=== PATIENT | female | born 1985 | race African-American/Black ===

== ENCOUNTER 2025-05-03 19:52 | Emergency (ER) | payer OTHER, SELFPAY ==
--- OUTSIDE RECORDS SUMMARY | 2025-04-19 09:20 | XMS_ITS | Encounter Summary ---
Author Organization [facility] Address [address] [place] [id number] Care Team Providers Care Canvassing Manager Name Role Phone Andrea Garrido MD Primary Care Pro vider Reason for Referral * Medication Prior Authorization - AuthorizedSpecialtyDiagnoses / Procedures Referred By ContactReferred To Contact Diagnoses Type 2 diabetes mellitus with hyperglycemia, with long-term current use of insulin (HCC) [facility] [address] [place] [address] Phone: tel: fax: Referral IDStatusReasonStart DateExpiration DateVisits RequestedVisits [id number] Reason for Visit * ReasonCommentsFollow-upDiabetesHypertensionHyperlipidemiaMedication Refill Encounter Details DateTypeDepartmentCare Team (Latest Contact Info)Nrtprdhiufj69/09/2025 9:20 AM EDTOffice Visit [facility] - [facility] [address] [facility] [address] [place] [address] Andrea Garrido MD [facility] [address] [place] [address] Type 2 diabetes mellitus with hyperglycemia, with long-term current use of insulin (HCC) (Primary Dx); Hypertension associated with diabetes (HCC); Hyperlipidemia associated with type 2 diabetes mellitus (HCC); Vitamin D deficiency; Class 3 severe obesity due to excess calories with serious comorbidity and body mass index (BMI) of50.0 to 59.9 in adult (HCC) Social History Tobacco UseTypesPacks/DayYears UsedDateSmoking Tobacco: Some DaysCigarettes0.5 15.4Started: 2008; Last attempted to quit: 4Passive Smoke Exposure: PastSmokeless Tobacco: Never Tobacco Cessation:Ready to Q uit: Yes Comments:Im gradually slowing down in my smoking. Eventually I will quit. Alcohol UseStandard Drinks/WeekCommentsNot Currently4 (1 standard drink = 0.6 oz pure alcohol)PHQ-2AnswerDate RecordedPHQ-2 Sdldn060Hunger Vital Sign AnswerDate RecordedWithin the past 12 months, you worried that your food would run out before you got the money to buymore.Sometimes true01/23/2025Within the past 12 months, the food you bought just didn't last and you didn't have money to get more.Sometimes true01/23/2025HC UtilitiesAnswerDate RecordedIn the past 12 months has the electric, gas, oil, or water [employer] threatened to shut off services in your home?Yes01/23/2025 - Inadequate HousingAnswerDate Recorded Current Living SituationI have a steady place to live01/23/2025Think about the place you live. Do you have problems with any of the following?None of the above 01/23/2025 - TransportationAnswerDate RecordedIn the past 12 months, has lack of reliable transportation kept you from medical appointments, meetings, work or from getting things needed for daily living?Yes01/23/2025HC - Personal Safety AnswerDate RecordedHow often does anyone, including family and friends, physically hurt you?Never04/19/2025How often does anyone, including family and friends, insult or talk down to you?Never04/19/2025How often does anyone, including family and friends, threaten you with harm?Never04/19/2025How often does anyone, including family and friends, scream or curse at you?Never 04/19/2025HC - Financial StrainAnswerDate RecordedHow hard is it for you to pay for the very basics like food, housing, medical care, and heating? Would you say it is:Not hard at all01/23/2025HC - Social ConnectionsAnswerDate RecordedIf for any reason you need help with day-to-day activities such as bathing, preparing meals, shopping, managing finances, etc., do you get the help you need?I don't need any help01/23/2025How often do you feel lonely or isolated from those around you?Jvbuphmcr19/15/2025Intimate Partner ViolenceAnswerDate RecordedFear of Current or Ex-IvzrmlyZc37/12/2025Emotionally QxlfvlNs67/12/2025Physically PfocalAy00/12/2025Sexually OiwbgiUa17/12/2025Social ConnectionsAnswerDate RecordedFrequency of Communication with Friends and FamilyMore than three times a week09/20/2024Frequency of Social Gatherings with Friends and FamilyOnce a week09/20/2024Financial Resource StrainAnswerDate RecordedDifficulty Paying Living ExpensesSomewhat hard09/20/2024Difficulty Paying Medical ExpensesYes 09/20/2024StressAnswerDate RecordedFeeling of StressOnly a xhmcib3809/20/2024 Physical ActivityAnswerDate RecordedDays of Exercise per Week4 days01/23/2025On those days that you engage in moderate to vigorous physical activity, how many minutes, on average, do you exercise?30001/23/2025Total Minutes of Exercise Per Roal7193401/23/2025Food InsecurityAnswerDate RecordedWorried about Running Out of Food in the Last YearNever true09/20/2024Ran Out of Food in the Last YearNever true09/20/2024Transportation NeedsAnswerDate RecordedLack of TransportationYes 09/20/2024Housing StabilityAnswerDate RecordedWas there a time when you did not have a steady place to wjrslDx2809/20/2024Worried that the place you are staying is making you hsqvUm8009/20/2024lcohol UseAnswerDate RecordedQ1: How often do you have a drink containing alcohol?Monthly or less01/23/2025Q2: How many drinks containing alcohol do you have on a typical day when you are drinking?1 or 2 01/23/2025Q3: How often do you have six or more drinks on one occasion?Never 01/23/2025lcohol UseNot Uvavvanoq15/15/2025CommentsNoSex and Gender InformationValueDate RecordedSex Assigned at OocbuOxjfvx88/08/2022 6:40 PM EDT Legal VnrVbptfk40/16/2020 11:52 AM EDTGender EeidgizzRlidaa88/08/2022 6:40 PM EDTSexual RzpszxhhjrpIaisfbrg73/08/2022 6:40 PM EDTdocumented as of this encounter Last Filed Vital Signs Vital SignReadingTime TakenCommentsBlood Oxiuslkm359/7104/19/2025 9:36 AM EDT Xbwin551004/19/2025 9:36 AM PHDZaoielpufzx40.6 ??C (97.8 ??F)04/19/2025 9:36 AM EDTRespiratory Gvvg8849 9:36 AM EDTOxygen Wlpyojgfcm78%04/19/2025 9:36 AM EDTInhaled Oxygen Concentration--Xhtupf440 kg (372 lb 3.2 oz)04/19/2025 9:36 AM JVNXruzug690.2 cm (5' 7 )04/19/2025 9:36 AM EDTBody Mass Index58.291 9:36 AM EDTdocumented in this encounter Patient Instructions * Patient Instructions* Andrea Garrido MD - 04/19/2025 9:20 AM EDT Yeah documented in this encounter Progress Notes * Andrea Garrido MD - 04/19/2025 9:20 AM EDT Patient Office Visit Note 04/19/2025 Umu Torres is a 39 y.o. female. Chief Complaint Patient presents with Follow-up Diabetes Hypertension Hyperlipidemia Medication Refill Diabetes She presents for her follow-up diabetic visit. She has type 2 diabetes mellitus. Onset time: Since 2020. Her disease course has been improving. There are no hypoglycemic associated symptoms. Pertinent negatives for hypoglycemia include no headaches, nervousness/anxiousness or sweats. Pertinent negatives for diabetes include no blurred vision, no chest pain, no fatigue, no foot paresthesias, no foot ulcerations, no polydipsia, no polyphagia, no polyuria, no visual change, no weakness and no weight loss. There are no hypoglycemic complications. There are no diabetic complications. Pertinent negatives for diabetic complications include no autonomic neuropathy, CVA, heart disease, nephropathy, peripheral neuropathy, PVD or retinopathy. Risk factors for coronary artery disease include hypertension, sedentary lifestyle, obesity, dyslipidemia and diabetes mellitus. Current diabetic treatment includes insulin injections, oral agent (monotherapy) and diet (On GLP1s). She is compliant with treatment most of the time (When available at pharmacy). An HAKEEM inhibitor/angiotensin II receptor kindra is being taken. She does not see a batterboard setter.Eye exam is current. Hyperlipidemia This is a chronic problem. The current episode started more than 1 year ago. The problem is controlled. Recent lipid tests were reviewed and are low. Exacerbating diseases include diabetes and obesity. She has no history of chronic renal disease, hypothyroidism, liver disease or nephrotic syndrome.There are no known factors aggravating her hyperlipidemia. Pertinent negatives include no chest pain, focal sensory loss, focal weakness, leg pain, myalgias or shortness of breath. Current antihyperlipidemic treatment includes statins. The current treatment provides significant improvement of lipids. There are no compliance problems. Risk factors for coronary artery disease include dyslipidemia, diabetes mellitus, obesity, hypertension, stress and a sedentary lifestyle. Hypertension This is a chronic problem. The current episode started more than 1 year ago. The problem is controlled. Pertinent negatives include no anxiety, blurred vision, chest pain, headaches, malaise/fatigue,neck pain, orthopnea, palpitations, peripheral edema, PND, shortness of breath or sweats. There areno associated agents to hypertension. Risk factors for coronary artery disease include obesity, dyslipidemia, diabetes mellitus, sedentary lifestyle and stress. Past treatments include diuretics and angiotensin blockers. The current treatment provides significant improvement. There are no compliance problems. There is no history of angina, kidney disease, CAD/FL, CVA, heart failure, left ventricular hypertrophy, PVD or retinopathy. There is no history of chronic renal disease or a thyroid problem. Review of Systems Constitutional: Negative for activity change, appetite change, chills, fatigue, fever, malaise/fatigue and weight loss. HENT: Negative for congestion, ear pain, hearing loss, postnasal drip, rhinorrhea, sinus pressure, sneezing and sore throat. Eyes: Negative for blurred vision, photophobia and visual disturbance. Respiratory: Negative for cough, shortness of breath and wheezing. Cardiovascular: Negative for chest pain, palpitations, orthopnea, leg swelling and PND. Gastrointestinal: Negative for abdominal distention, abdominal pain, constipation, diarrhea, nauseaand vomiting. Endocrine: Negative. Negative for polydipsia, polyphagia and polyuria. Genitourinary: Negative for dysuria and flank pain. Musculoskeletal: Negative for arthralgias, back pain, myalgias and neck pain. Skin: Negative. Neurological: Negative for focal weakness, weakness, numbness and headaches. Hematological: Negative. Psychiatric/Behavioral: Negative. Negative for suicidal ideas. The patient is not nervous/anxious. PHQ Depression Screening PHQ2 Score: 0 PHQ2/9 is interpreted as Negative in this patient Allergies[1] Current Medications[2] Medical History[3] Problem List[4] Surgical History[5] Family History[6] Social History[7] Objective BP 128/71 (BP Location: Left arm, Patient Position: Sitting) Pulse 86 Temp 97.8 ??F (36.6 ??C) (Oral) Resp 20 Ht 170.2 cm (67 ) Wt (!) 169 kg (372 lb 3.2 oz) LMP 03/27/2025 (Exact Date) SpO2 99% BMI 58.29 kg/m?? Vitals: 04/19/25 0936 BP: 128/71 BP Location: Left arm Patient Position: Sitting Pulse: 86 Resp: 20 Temp: 97.8 ??F (36.6 ??C) TempSrc: Oral SpO2: 99% Weight: (!) 169 kg (372 lb 3.2 oz) Height: 170.2 cm (67 ) Physical Exam Constitutional: General: She is awake. She is not in acute distress. Appearance: Normal appearance. She is well-developed and well-groomed. She is obese. She is not ill-appearing. HENT: Head: Normocephalic and atraumatic. Nose: Nose normal. Mouth/Throat: Mouth: Mucous membranes are moist. Pharynx: Oropharynx is clear. No oropharyngeal exudate. Eyes: General: No scleral icterus. Extraocular Movements: Extraocular movements intact. Conjunctiva/sclera: Conjunctivae normal. Pupils: Pupils are equal, round, and reactive to light. Cardiovascular: Rate and Rhythm: Normal rate and regular rhythm. Pulses: Normal pulses. Dorsalis pedis pulses are 2+ on the right side and 2+ on the left side. Posterior tibial pulses are 2+ on the right side and 2+ on the left side. Heart sounds: Normal heart sounds. No murmur heard. No gallop. Pulmonary: Effort: Pulmonary effort is normal. No respiratory distress. Breath sounds: Normal breath sounds. No stridor. No wheezing, rhonchi or rales. Abdominal: General: Bowel sounds are normal. Palpations: Abdomen is soft. Tenderness: There is no abdominal tenderness. There is no guarding. Musculoskeletal: General: Normal range of motion. Cervical back: Normal range of motion. Right foot: Normal range of motion. No deformity or Charcot foot. Left foot: Normal range of motion. No deformity or Charcot foot. Feet: Right foot: Protective Sensation: 10 sites tested. 10 sites sensed. Skin integrity: Callus and dry skin present. No ulcer, blister, skin breakdown, erythema, warmth orfissure. Toenail Condition: Right toenails are normal. Left foot: Protective Sensation: 10 sites tested. 10 sites sensed. Skin integrity: Callus and dry skin present. No ulcer, blister, skin breakdown, erythema, warmth orfissure. Toenail Condition: Left toenails are normal. Skin: General: Skin is warm and dry. Coloration: Skin is not jaundiced. Findings: No erythema or rash. Neurological: General: No focal deficit present. Mental Status: She is alert and oriented to person, place, and time. Mental status is at baseline. Cranial Nerves: No cranial nerve deficit. Sensory: No sensory deficit. Motor: No weakness. Gait: Gait normal. Psychiatric: Attention and Perception: Attention and perception normal. Mood and Affect: Mood and affect normal. Speech: Speech normal. Behavior: Behavior normal. Behavior is cooperative. Thought Content: Thought content normal. Thought content does not include homicidal or suicidal ideation. Thought content does not include homicidal or suicidal plan. Cognition and Memory: Cognition and memory normal. Judgment: Judgment normal. BP Readings from Last 6 Encounters: 04/19/25 128/71 09/21/24 94/60 07/24/24 120/79 05/09/24 130/84 10/06/23 120/85 08/10/23 129/85 Lab Results Component Value Date HGBA1C 7.0 (A) 04/19/2025 HGBA1C 11.5 (H) 09/14/2024 HGBA1C 7.9 (A) 05/09/2024 HGBA1C 6.8 (A) 08/10/2023 HGBA1C 6.3 (A) 11/11/2022 HGBA1C 6.7 (A) 02/17/2022 Lab Results Component Value Date TSH 2.490 09/14/2024 Lab Results Component Value Date TRIG 142 09/14/2024 CHOL 142 09/14/2024 HDL 46 09/14/2024 LDLCALC 71 09/14/2024 CHHDL 3.1 09/14/2024 Lab Results Component Value Date MICROALBUR 8.6 05/09/2024 LDLCALC 71 09/14/2024 CREATININE 0.80 09/14/2024 Lab Results Component Value Date ANIONGAP 10 04/21/2023 ALKPHOS 122 (H) 09/14/2024 AST 21 09/14/2024 BUN 8 09/14/2024 CALCIUM 9.4 09/14/2024 CL 99 09/14/2024 K 4.1 09/14/2024 NA 133 (L) 09/14/2024 ALT 33 (H) 09/14/2024 CO2 18 (L) 09/14/2024 GLUCOSE 300 (H) 09/14/2024 ALBUMIN 3.9 09/14/2024 CREATININE 0.80 09/14/2024 PROT 6.7 09/14/2024 Lab Results Component Value Date WBC 10.2 09/14/2024 RBC 4.62 09/14/2024 HGB 11.7 09/14/2024 HCT 37.8 09/14/2024 MCV 82 09/14/2024 MCH 25.3 (L) 09/14/2024 MCHC 32.3 04/21/2023 RDW 15.0 09/14/2024 PLT 534 (H) 09/14/2024 MPV 8.9 (L) 04/21/2023 EOSPCT 1 09/14/2024 NEUTROABS 4.9 09/14/2024 LYMPHSABS 4.6 (H) 09/14/2024 MONOSABS 0.6 09/14/2024 EOSABS 0.05 04/21/2023 BASOSABS 0.1 09/14/2024 eGFR Cre: 97 at 09/14/2024 8:17 AM Calculated from: Serum Creatinine: 0.80 mg/dL at 09/14/2024 8:17 AM Age: 39 years Sex: Female at 09/14/2024 8:17 AM Calculated using the CKD-EPI Creatinine Equation (2020) The ASCVD Risk score (Kiel MARIN, et al., 2019) failed to calculate for the following reasons: The 2019 ASCVD risk score is only valid for ages 40 to 79 Assessment & Plan Problem List Items Addressed This Visit Endocrine Hypertension associated with diabetes (HCC) Chronic, controlled, at goal Goal: Less than 140/90 Current regimen Diovan HCT 160/25 mg 1 tablet p.o. daily Changes: None Medication refill needed: No Reevaluate patient blood pressure at subsequent visits. Relevant Medications semaglutide (Ozempic) 0.25 mg or 0.5 mg (2 mg/3 mL) pen injection Type 2 diabetes mellitus with hyperglycemia, with long-term current use of insulin (HCC) - Primary Chronic A1c (04/19/2025): 7.0 Improved significantly Current regimen: Metformin XR 500 mg p.o. twice daily, insulin lispro 10 units 3 times daily with meals, Semglee 15 units subcu nightly, Mounjaro 7.5 mg subcu weekly Changes: Patient has made significant dietary changes, will hold off on mealtime insulin and continue basal insulin, due to new insurance coverage will need to switch patient from Mounjaro to Ozempicstarting at 0.5 mg subcu weekly Medication refill needed: Yes Statin use: Yes on Lipitor HAKEEM/ARB use: Yes on valsartan Microalbumin: 05/09/2024 Diabetic foot exam: 09/21/2024 Diabetic eye exam: 05/15/2024 Follow-up: 3 months Relevant Medications semaglutide (Ozempic) 0.25 mg or 0.5 mg (2 mg/3 mL) pen injection Other Relevant Orders Glycosylated Hemoglobin (Hgb A1C)- POC (Completed) Hyperlipidemia associated with type 2 diabetes mellitus (HCC) Chronic Stable Current regimen: Lipitor 20 mg p.o. nightly Changes: None Medication refill needed: No Continue to monitor Recheck lipid panel 6-12 months from last recheck Relevant Medications semaglutide (Ozempic) 0.25 mg or 0.5 mg (2 mg/3 mL) pen injection Other Class 3 severe obesity due to excess calories with serious comorbidity and body mass index (BMI) of50.0 to 59.9 in adult (HCC) Chronic Discussed with patient how increased BMI/weight puts a greater risk of developing worsening blood pressure and increased blood sugar potentially worsening diabetes. Counseled on lifestyle modification such as dietary changes i.e. focusing on lean proteins and fruits/vegetables and increasing physical activity. Reinforced how bringing down ones weight/BMI positively will impact health overall. Continue track patient's weight at subsequent visits. Currently on GLP-1's for blood sugar control, will maximize dosing to further facilitate weight loss. Vitamin D deficiency Chronic Last vitamin D: 5 Current regimen: vitamin D3 50,000's p.o. weekly Changes: None Medication refill needed: No Continue to monitor Recheck vitamin D with next lab work Return in about 3 months (around 07/20/2025) for F/u DM/HLD/HTN. [1] Allergies Allergen Reactions Cephalexin Hives/Swelling-Allergy and Rash-Allergy [2] Current Outpatient Medications: atorvastatin (LIPITOR) 20 MG tablet, Take 1 tablet (20 mg) by mouth nightly, Disp: 90 tablet, Rfl: 1 blood sugar diagnostic (glucose blood), by Miscellaneous route in the morning and at noon and in the evening and before bedtime. Blood glucose testing strips of patient's choice., Disp: 200 each, Rfl: 11 ergocalciferol (DRISDOL) 1,250 mcg (50,000 unit) capsule, Take 1 capsule (50,000 Units) by mouth once a week, Disp: 12 capsule, Rfl: 3 insulin aspart U-100 (NovoLOG) 100 unit/mL (3 mL) pen injection, Inject 10 Units under the skin in the morning and 10 Units at noon and 10 Units in the evening. Inject with meals., Disp: 27 mL, Rfl: 3 lancets, by Miscellaneous route in the morning and at noon and in the evening and before bedtime. Any lancets covered by insurance., Disp: 200 each, Rfl: 11 metFORMIN (GLUCOPHAGE-XR) 500 mg 24 hr tablet, Take 1 tablet (500 mg) by mouth 2 (two) times a day,Disp: 180 tablet, Rfl: 1 pen needle, diabetic (BD CAROL PEN) 32 gauge x 5/32 , by Miscellaneous route in the morning and at noon and in the evening and before bedtime. Any pen needle covered by insurance., Disp: 200 each, Rfl: 11 semaglutide (Ozempic) 0.25 mg or 0.5 mg (2 mg/3 mL) pen injection, Inject 0.5 mg under the skin once weekly on the same day each week, Disp: 9 mL, Rfl: 3 Semglee,insulin glarg-yfgn,Pen 100 unit/mL (3 mL) inpn, Inject 15 Unit under the skin daily, Disp: 15 mL, Rfl: 3 valACYclovir (VALTREX) 1000 MG tablet, Take 1 tablet (1,000 mg) by mouth daily, Disp: 90 tablet, Rfl: 3 valsartan-hydrochlorothiazide (DIOVAN-HCT) 160-25 mg per tablet, Take 1 tablet by mouth daily, Disp: 90 tablet, Rfl: 1 [3] Past Medical History: Diagnosis Date Diabetes mellitus (HCC) 07/2020 Hyperlipidemia associated with type 2 diabetes mellitus (HCC) Hypertension associated with diabetes (HCC) Obesity, morbid, BMI 50 or higher (HCC) Vitamin D deficiency [4] Patient Active Problem List Diagnosis Tobacco abuse, in remission Class 3 severe obesity due to excess calories with serious comorbidity and body mass index (BMI) of50.0 to 59.9 in adult (HCC) Hypertension associated with diabetes (HCC) Type 2 diabetes mellitus with hyperglycemia, with long-term current use of insulin (HCC) Hyperlipidemia associated with type 2 diabetes mellitus (HCC) Vitamin D deficiency Obstructive sleep apnea [5] Past Surgical History: Procedure Laterality Date DILATION AND CURETTAGE OF UTERUS [6] Family History Problem Relation Age of Onset Hypertension Mother [7] Social History Socioeconomic History Marital status: Single Tobacco Use Smoking status: Some Days Current packs/day: 0.10 Average packs/day: 0.5 packs/day for 15.4 years (7.6 ttl pk-yrs) Types: Cigarettes Start date: 2008 Last attempt to quit: 07/26/2023 Passive exposure: Past Smokeless tobacco: Never Tobacco comments: Im gradually slowing down in my smoking. Eventually I will quit. Vaping Use Vaping status: Never Used Substance and Sexual Activity Alcohol use: Not Currently Alcohol/week: 4.0 - 5.0 standard drinks of alcohol Types: 4 Shots of liquor per week Drug use: Not Currently Types: Marijuana Comment: Have not smoked marijuana in 5 years. Sexual activity: Yes Partners: Male control/protection: Coitus interruptus, Condom, None Comment: It is either condom, control pills, or nothing. documented in this encounter Miscellaneous Notes * Assessment & Plan Note - Andrea Garrido MD - 04/19/2025 9:32 AM EDTAssociated Problem(s): Type 2 diabetes mellitus with hyperglycemia, with long-term current use of insulin (HCC) Chronic A1c (04/19/2025): 7.0 Improved significantly Current regimen: Metformin XR 500 mg p.o. twice daily, insulin lispro 10 units 3 times daily with meals, Semglee 15 units subcu nightly, Mounjaro 7.5 mg subcu weekly Changes: Patient has made significant dietary changes, will hold off on mealtime insulin and continue basal insulin, due to new insurance coverage will need to switch patient from Mounjaro to Ozempicstarting at 0.5 mg subcu weekly Medication refill needed: Yes Statin use: Yes on Lipitor HAKEEM/ARB use: Yes on valsartan Microalbumin: 05/09/2024 Diabetic foot exam: 09/21/2024 Diabetic eye exam: 05/15/2024 Follow-up: 3 months * Assessment & Plan Note - Andrea Garrido MD - 04/19/2025 9:31 AM EDTAssociated Problem(s): Hypertension associated with diabetes (HCC) Chronic, controlled, at goal Goal: Less than 140/90 Current regimen Diovan HCT 160/25 mg 1 tablet p.o. daily Changes: None Medication refill needed: No Reevaluate patient blood pressure at subsequent visits. * Assessment & Plan Note - Andrea Garrido MD - 04/19/2025 9:30 AM EDTAssociated Problem(s): Hyperlipidemia associated with type 2 diabetes mellitus (HCC) Chronic Stable Current regimen: Lipitor 20 mg p.o. nightly Changes: None Medication refill needed: No Continue to monitor Recheck lipid panel 6-12 months from last recheck * Assessment & Plan Note - Andrea Garrido MD - 04/19/2025 9:30 AM EDTAssociated Problem(s): Vitamin D deficiency Chronic Last vitamin D: 5 Current regimen: vitamin D3 50,000's p.o. weekly Changes: None Medication refill needed: No Continue to monitor Recheck vitamin D with next lab work * Assessment & Plan Note - Andrea Garrido MD - 04/19/2025 9:29 AM EDTAssociated Problem(s): Class 3 severe obesity due to excess calories with serious comorbidity and body mass index (BMI) of 50.0 to 59.9 in adult (HCC) Chronic Discussed with patient how increased BMI/weight puts a greater risk of developing worsening blood pressure and increased blood sugar potentially worsening diabetes. Counseled on lifestyle modification such as dietary changes i.e. focusing on lean proteins and fruits/vegetables and increasing physical activity. Reinforced how bringing down ones weight/BMI positively will impact health overall. Continue track patient's weight at subsequent visits. Currently on GLP-1's for blood sugar control, will maximize dosing to further facilitate weight loss. documented in this encounter Plan of Treatment DateTypeDepartmentCare Team (Latest Contact Info)Aaubmfldsyu44/09/2026 9:20 AM ESTOffice Visit [address] [place] [address] Andrea Garrido MD [address] [place] [address] [address] [place] [address] documented as of this encounter Procedures Procedure NamePriorityDate/TimeAssociated DiagnosisCommentsGLYCOSYLATED HEMOGLOBIN (HGB A1C)-RGINnbhfdw38/09/2025 10:01 AM EDT Type 2 diabetes mellitus with hyperglycemia, with long-term current use of insulin (HCC) documented in this encounter Results * (ABNORMAL) Glycosylated Hemoglobin (Hgb A1C)- POC (04/19/2025 10:01 AM EDT) ComponentValueRef RangeTest MethodAnalysis TimePerformed AtPathologist SignatureHemoglobin A1c7.0(A)4.3 - 5.6 %[facility]REEK HOSPITALMeter Serial# A1C - [id number] FORESTSpecimen (Source)Anatomical Location / LateralityCollection Method / VolumeCollection TimeReceived Time Whole BloodBlood / Ylgltew6804/19/2025 10:01 AM EDT Narrative Authorizing ProviderResult TypeResult StatusRodrigtomasz Garrido MDPOINT OF CARE TEST ORDERABLESFinal ResultPerforming OrganizationAddressCity/State/ZIP CodePhone Number [address] [place] [address], documented in this encounter Visit Diagnoses Diagnosis Type 2 diabetes mellitus with hyperglycemia, with long-term current use of insulin (HCC)- Primary Hypertension associated with diabetes (HCC) Unspecified essential hypertension Hyperlipidemia associated with type 2 diabetes mellitus (HCC) Vitamin D deficiency Class 3 severe obesity due to excess calories with serious comorbidity and body mass index (BMI) of50.0 to 59.9 in adult (HCC) documented in this encounter Care Teams Team MemberRelationshipSpecialtyStart DateEnd Date Andrea Garrido MD [address] [place] [address] [address] [place] [address] PCP - GeneralFamily Qfudhuvq22/29/24documented as of this encounter
[2025-05-03 20:02] VITALS: BP 130/96; PULSE 114; TEMP 36.5; O2SAT 97; BMI 53.6
--- OUTSIDE RECORDS SUMMARY | 2025-05-03 20:13 | XMS_ITS | Clinical Summary ---
Author Organization [facility] nter Address [address] [place] [address] Care Team Providers Care Wardrobe Mistress Name Role Phone Nas Hoang MD Primary Care Provider [phone] Allergies No known active allergies Medications MedicationSigDispense QuantityRefillsLast FilledStart DateEnd DateStatus losartan-hydroCHLOROthiazide (HYZAAR) 50-12.5 mg tablet Take 1 tablet by mouth daily.03/09/2021ctive mupirocin (BACTROBAN) 2% topical ointment Apply topically 2 (two) times daily. 22 g 01/14/2022ctive atorvastatin (LIPITOR) 20 mg tablet Take 1 tablet (20 mg total) by mouth daily.Active fluconazole (DIFLUCAN) 150 MG tablet TAKE ONE TABLET BY MOUTH. REPEAT IN 2 DAYS IF NEEDED. 2 tablet 06/13/2022ctive metFORMIN (GLUCOPHAGE) 500 mg tablet Take 2 tablets (1,000 mg total) by mouth 2 (two) times daily with meals. 60 tablet 06/13/2022ctive insulin glargine (LANTUS SOLOSTAR) 100 units/mL insulin pen Indications:Diabetes mellitus, type 2Inject 20 Units into the skin every evening. 15 mL 06/13/2022ctive insulin pen needle, 31 g x 6 mm by Does Not Apply route daily. 30 each 06/13/2022ctive guaiFENesin-codeine (ROBITUSSIN AC) 100-10 mg/5 mL oral solution Take 5 mLs by mouth every 6 (six) hours as needed for cough. 90 mL 09/19/2023ctive NOVOLOG FLEXPEN 100 UNIT/ML injection INJECT 10 UNITS UNDER THE SKIN THREE TIMES A DAY. ONCE IN THE MONRING, AT NOON, AND IN THE EVENING WITH MEALSActive Active Problems No known active problems Family History Medical HistoryRelationCommentsHypertensionFatherHypertensionMotherRelation StatusCommentsFatherMother Social History Tobacco UseTypesPacks/DayYears UsedDateSmoking Tobacco: Every DayCigarettes Smokeless Tobacco: Never Tobacco Cessation:Ready to Q uit: Not Asked; Counseling Given: Not Answered Alcohol UseStandard Drinks/WeekCommentsYes0 (1 standard drink = 0.6 oz pure alcohol)a couple times a weekDepressionAnswerDate RecordedPHQ-2 ScoreNot on file 01/02/2020PHQ-9 ScoreNot on file01/02/2020CommentsNoSex and Gender InformationValueDate RecordedSex Assigned at BirthNot on fileLegal SexFemale 10/26/2012 5:30 PM EDTGender IdentityNot on fileSexual OrientationNot on file Last Filed Vital Signs Vital SignReadingTime TakenCommentsBlood Axxbesda788/8705 7:10 PM EDT Qipwh98311/22/2025 7:10 PM ARXAgookuxlljq53.3 ??C (99.2 ??F)11/30/2024 7:10 PM EDTRespiratory Mtzh6943 7:10 PM EDTOxygen Lvpsfrkzvd21%11/30/2024 7:10 PM EDTInhaled Oxygen Concentration--Ipyjms480.6 kg (365 lb)11/30/2024 7:10 PM QVEJsjwsa338.7 cm (5' 8 )11/30/2024 7:10 PM EDTBody Mass Index55.505 7:10 PM EDT Plan of Treatment Health MaintenanceDue DateLast DoneCommentsHepatitis C Hjhqavplk1987Pap Smear1987Yearly Qnbtyyfb1987Hepatitis B Vaccines (1 of 3 - 19+ 3- dose series)2006Pneumococcal Vaccine: Pediatrics (0 to 5 Years) and At- Risk Patients (6 to 49 Years) (1 of 2 - PCV)2006HPV Vaccines (1 - 3-dose SCDM series)2014COVID-19 Vaccine ( season) Influenza Vaccine (#1)5ALT Level/12/2024, 09/14/2024, 06/13/2024, Additional history existsCreatinine Level/12/2024, 06/13/2024, 05/09/2024, Additional history existsLipid Panel09/14/2025 09/14/2024, 04/02/2023, 02/17/2022otassium Level/12/2024, 06/13/2024, 10/06/2023, Additional history existsDiabetes Duabfurph02/06/2028 09/14/2024, 06/13/2024, 10/06/2023, Additional history existsDTaP,Tdap,and Td Vaccines (7 - Td or Tdap)/03/2025, 02/14/1992, 11/18/1988, Additional history existsHib LsnhujejLmisezztn21/10/1989MMR VaccinesCompleted 02/14/1992, 08/19/1988Urine HunucidxcuwsQslpibvrlutr46/29/2024, 11/11/2022 Hemoglobin U5HVpysrpbcfpdn64/06/2025, 05/09/2024, 08/10/2023, Additional history existsHepatitis A VaccinesAged OutNo longer eligible based on patient's age to complete this topicMeningococcal B VaccineAged OutNo longer eligible based on patient's age to complete this topicMeningococcal Vaccines (ACWY)Aged OutNo longer eligible based on patient's age to complete this topicRSV Immunization < 20 MonthsAged OutNo longer eligible based on patient's age to complete this topic Procedures Procedure NamePriorityDate/TimeAssociated DiagnosisCommentsBASIC METABOLIC PANEL STAT108/14/2023 6:57 PM EST HEPATIC FUNCTION JGWYZBEEN23/03/2024 6:57 PM EST GLYCOSYLATED HEMOGLOBIN W4OOSGF1706/13/2022 6:34 PM EST Hyperglycemia from Last 3 Months or Most Recently Relevant to Health Maintenance Results * (ABNORMAL) Liver Profile (06/13/2024 6:57 PM EST)ComponentValueRef RangeTest MethodAnalysis TimePerformed AtPathologist SignatureAST (SGOT)2310 - 37 U/L 06/13/2024 7:27 PM [facility]ALT (SGPT)2414 - 59 U/L 06/13/2024 7:27 PM [facility]OSPITALAlkaline Oadasvuichi26690 - 117 U/L108/14/2023 7:27 PM [facility]ITALBilirubin Total0.30.2 - 1.0 mg/dL06/13/2024 7:27 PM [facility]ITALBilirubin, Direct0.10.0 - 0.3 mg/dL06/13/2024 7:27 PM [facility]ITALAlbumin2.9(L)3.4 - 5.0 g/dL06/13/2024 7:27 PM [facility]ITALTotal Protein6.56.4 - 8.2 g/dL06/13/2024 7:27 PM [facility]ITALpecimen (Source)Anatomical Location / LateralityCollection Method / VolumeCollection TimeReceived Time BLOOD (Blood)Venipuncture / Muztzzc7906/13/2024 6:57 PM EST06/13/2024 6:57 PM EST Narrative Authorizing ProviderResult TypeResult StatusWekaila De La Cruz [facility] BLOOD ORDERABLESFinal ResultPerforming OrganizationAddressCity/State/ZIP CodePhone Number [facility] [address] [place] [address], [facility] * (ABNORMAL) TEACHER EMOTIONALLY IMPAIRED (06/13/2024 6:57 PM EST)ComponentValueRef RangeTest Method Analysis TimePerformed AtPathologist MzzzbypexRspgasu537(H)70 - 99 mg/dL 06/13/2024 7:27 PM [facility]ITALodium142136 - 145 meq/L 06/13/2024 7:27 PM [facility]ITALPotassium3.83.5 - 5.1 meq/L 06/13/2024 7:27 PM [facility]ITALChloride111(H)101 - 110 meq/L 06/13/2024 7:27 PM [facility]ITALCO22521 - 32 meq/L108/14/2023 7:27 PM [facility]ITALBUN7(L)9 - 23 mg/dL06/13/2024 7:27 PM EST [facility]reatinine0.90.5 - 1.1 mg/dL06/13/2024 7:27 PM EST [facility]Calcium8.78.7 - 10.4 mg/dL06/13/2024 7:27 PM EST [facility]Anion Gap63 - 10 meq/L108/14/2023 7:27 PM [facility]OSPITALeGFR84.6>60 mL/min/1.73 sqm ASIF 06/13/2024 7:27 PM [facility]OSPITALComment:Calculation based on the Chronic Kidney Disease Epidemiology Collaboration (CKD-EPI) equation refit without adjustment for race.Specimen (Source)Anatomical Location / Laterality Collection Method / VolumeCollection TimeReceived TimeBLOOD (Blood)Venipuncture / Rajtmhm6606/13/2024 6:57 PM EST06/13/2024 6:57 PM EST Narrative Authorizing ProviderResult TypeResult StatusWekaila De La Cruz [facility] BLOOD ORDERABLESFinal ResultPerforming OrganizationAddressCity/State/ZIP CodePhone Number [facility] [address] * (ABNORMAL) Glycosylated Hemoglobin A1c (06/13/2022 6:34 PM EST)ComponentValue Ref RangeTest MethodAnalysis TimePerformed AtPathologist SignatureGlycosylated Hemoglobin A1c11.7(H)<5.7 %06/15/2022 12:12 PM [facility] Comment: Reference Values for 18 years or older* Normal: <5.7% Therapeutic goals for glycemic control (ADA) Goal of Therapy: <7.0% Action suggested: >8.0% ? Hemoglobin A1c values of 5.7-6.4% indicate an increased risk for developing diabetes mellitis. Hemoglobin A1c values greater than or equal to 6.5% are diagnostic of diabetes mellitus. Conditions that shorten red cell survival such as hemolysis or blood loss may yield falsely low results. eAG(Est.AVG.GLU)289mg/dL06/15/2022 12:12 PM [facility]ITALpecimen (Source)Anatomical Location / LateralityCollection Method / VolumeCollection TimeReceived TimeBlood specimen (specimen) (Blood)Venipuncture / Unknown 06/13/2022 6:34 PM EST06/13/2022 6:36 PM EST Narrative Authorizing ProviderResult TypeResult StatusKarissa Tavera NPL[facility] BLOOD ORDERABLESFinal ResultPerforming OrganizationAddressCity/State/ZIP CodePhone Number [facility] [address] [place] [address], [facility] from Last 3 Months or Most Recently Relevant to Health Maintenance Insurance MemberSubscriberPlan / Payer (Effective 2023-Present)Name:Hosea Torres Relation to Subscriber:SelfName:Hosea Torres Payer ID:[id number] ([facility]) Type:PPO Address: [address] [place] [id number] Care Teams Team MemberRelationshipSpecialtyStart DateEnd Date Nas Hoang MD [address] [place] [address] PCP - GeneralFamily Hduelfjh09/3/22
--- OUTSIDE RECORDS SUMMARY | 2025-05-03 20:13 | XMS_ITS | Encounter Summary ---
Author Organization [facility] Address [address] [place] [address] Care Team Providers Care Assistant Paralegal Name Role Phone Andrea Garrido MD Primary Care Pro vider Reason for Visit * ReasonOnset DateCommentsPrior Tuzgymgymezhj87/22/2025 Encounter Details DateTypeDepartmentCare Team (Latest Contact Info)Isqzxxmyoto34/22/2025Telephone [facility] [address] [facility] [address] [place] [phone] Izabella Leyva CMA Social History Tobacco UseTypesPacks/DayYears UsedDateSmoking Tobacco: Some DaysCigarettes0.5 15.4Started: 2008; Last attempted to quit: 4Passive Smoke Exposure: PastSmokeless Tobacco: Never Comments:Im gradually slowin g down in my smoking. Eventually I will quit. Alcohol UseStandard Drinks/WeekCommentsNot Currently4 (1 standard drink = 0.6 oz pure alcohol)PHQ-2AnswerDate RecordedPHQ-2 Aojbi907Hunger Vital Sign AnswerDate RecordedWithin the past 12 months, you worried that your food would run out before you got the money to buymore.Sometimes true01/23/2025Within the past 12 months, the food you bought just didn't last and you didn't have money to get more.Sometimes true07/15/2025AHC UtilitiesAnswerDate RecordedIn the past 12 months has the electric, gas, oil, or water company threatened to shut off services in your [...] or from getting things needed for daily living?Yes01/23/2025 - Personal Safety AnswerDate RecordedHow often does anyone, including family and friends, physically hurt you?Never04/19/2025How often does anyone, including family and friends, insult or talk down to you?Never04/19/2025How often does anyone, including family and friends, threaten you with harm?Never04/19/2025How often does anyone, including family and friends, scream or curse at you?Never 04/19/2025 - Financial StrainAnswerDate RecordedHow hard is it for you to pay for the very basics like food, housing, medical care, and heating? Would you say it is:Not hard at all01/23/2025 - Social ConnectionsAnswerDate RecordedIf for any reason you need help with day-to-day activities such as bathing, preparing meals, shopping, managing finances, etc., do you get the help you need?I don't need any help01/23/2025How often do you feel lonely or isolated from those around you?Qtzpkyfuw85/15/2025Intimate Partner ViolenceAnswerDate RecordedFear of Current or Ex-BwuuxshPr90/12/2025Emotionally PvvaduLs25/12/2025Physically WyqemdZs34/12/2025Sexually QcgufqZs55/12/2025Social ConnectionsAnswerDate RecordedFrequency of Communication with Friends and FamilyMore than three times a week09/20/2024Frequency of Social Gatherings with Friends and FamilyOnce a week09/20/2024Financial Resource StrainAnswerDate RecordedDifficulty Paying Living ExpensesSomewhat hard09/20/2024Difficulty Paying Medical ExpensesYes 09/20/2024StressAnswerDate RecordedFeeling of StressOnly a bvjdxw5209/20/2024 Physical ActivityAnswerDate RecordedDays of Exercise per Week4 days01/23/2025On those days that you engage in moderate to vigorous physical activity, how many minutes, on average, do you exercise?30001/23/2025Total Minutes of Exercise Per Tslq6649301/23/2025Food InsecurityAnswerDate RecordedWorried about Running Out of Food in the Last YearNever true09/20/2024Ran Out of Food in the Last YearNever true09/20/2024Transportation NeedsAnswerDate RecordedLack of TransportationYes 09/20/2024Housing StabilityAnswerDate RecordedWas there a time when you did not have a steady place to wnqdgJe2009/20/2024Worried that the place you are staying is making you bvseDz0109/20/2024lcohol UseAnswerDate RecordedQ1: How often do you have a drink containing alcohol?Monthly or less01/23/2025Q2: How many drinks containing alcohol do you have on a typical day when you are drinking?1 or 2 01/23/2025Q3: How often do you have six or more drinks on one occasion?Never 01/23/2025lcohol UseNot Jotlkgcco83/15/2025CommentsNoSex and Gender InformationValueDate RecordedSex Assigned at FubytGbyjzc00/08/2022 6:40 PM EDT Legal MciFgvfyy27/16/2020 11:52 AM EDTGender EukfprmyIipmlm09/08/2022 6:40 PM EDTSexual ZtboxxlgiejJicvetbw87/08/2022 6:40 PM EDTdocumented as of this encounter Miscellaneous Notes * Telephone Encounter - Izabella Leyva CMA - 05/02/2025 9:44 AM EDT Attempted to contact pt regarding YV[employer] Stock. Pt did not answer. Left message. able to leave Blogict message documented in this encounter Plan of Treatment DateTypeDepartmentCare Team (Latest Contact Info)Tkiyaojlmqp62/09/2026 9:20 AM ESTOffice Visit [facility] [address] [facility] [address] [place] [phone] [place] [address] [place] [address] [address] [place] [address] documented as of this encounter Visit Diagnoses Not on filedocumented in this encounter Care Teams Team MemberRelationshipSpecialtyStart DateEnd Date Andrea Garrido MD [address] [place] [address] [address] [place] [address] PCP - GeneralFamily Pbfjgykf54/29/24documented as of this encounter
--- OUTSIDE RECORDS SUMMARY | 2025-05-03 20:13 | XMS_ITS | Encounter Summary ---
Author Organization [facility] Health Address [address] [place] [address] Care Team Providers Care Picture Painter Name Role Phone Unavailable Primary Care Provider Unavailabl e Prior Encounters DateTypeDepartmentCare WywbUofjucezsij98/20/2020Converted 13x Documents [facility] [address], [place] [address] <No scans attached> Plan of Treatment Not on file Procedures Procedure NamePriorityDate/TimeAssociated DiagnosisCommentsMISSED APPOINTMENT Omixrav5009/27/2019 3:00 AM EDTMISSED AGBKQFGXHPCTidegen45/18/2020 3:00 AM EDT Visit Diagnoses Not on file
--- OUTSIDE RECORDS SUMMARY | 2025-05-03 20:13 | XMS_ITS | Clinical Summary ---
Author Organization [facility] Address [address] [place] [address] Care Team Providers Care Cloth Presser Name Role Phone Andrea Garrido MD Primary Care Pro vider Allergies Active AllergyReactionsCriticalityNoted DateCommentsCephalexin Hives/Swelling-Allergy,Rash-PbmcovbFztn02/13/2025 Medications MedicationSigDispense QuantityRefillsLast FilledStart DateEnd DateStatus Semglee,insulin glarg-yfgn,Pen 100 unit/mL (3 mL) inpn Indications:Type 2 diabetes mellitus with hyperglycemia, with long-term current use of insulin (HCC)Inject 15 Unit under the skin daily 15 mL ctive ergocalciferol (DRISDOL) 1,250 mcg (50,000 unit) capsule Indications:Vitamin D deficiencyTake 1 capsule (50,000 Units) by mouth once a week 12 capsule ctive atorvastatin (LIPITOR) 20 MG tablet Indications:Mixed hyperlipidemiaTake 1 tablet (20 mg) by mouth nightly 90 tablet ctive valsartan-hydrochlorothiazide (DIOVAN-HCT) 160-25 mg per tablet Indications:Primary hypertensionTake 1 tablet by mouth daily 90 tablet ctive pen needle, diabetic (BD CAROL PEN) 32 gauge x 5/32 Indications:Type 2 diabetes mellitus without complication, with long-term current use of insulin (HCC)by Miscellaneous route in the morning and at noon and in the evening and before bedtime. Any pen needle covered by insurance. 200 each 5Active metFORMIN (GLUCOPHAGE-XR) 500 mg 24 hr tablet Indications:Type 2 diabetes mellitus without complication, with long-term current use of insulin (HCC)Take 1 tablet (500 mg) by mouth 2 (two) times a day 180 tablet ctive valACYclovir (VALTREX) 1000 MG tablet Indications:HSV-2 infectionTake 1 tablet (1,000 mg) by mouth daily 90 tablet ctive insulin aspart U-100 (NovoLOG) 100 unit/mL (3 mL) pen injection Indications:Type 2 diabetes mellitus with hyperglycemia, with long-term current use of insulin (HCC)Inject 10 Units under the skin in the morning and 10 Units at noon and 10 Units in the evening. Inject with meals. 27 mL ctive blood sugar diagnostic (glucose blood) Indications:Type 2 diabetes mellitus without complication, with long-term current use of insulin (HCC)by Miscellaneous route in the morning and at noon and in the evening and before bedtime. Blood glucose testing strips of patient's choice. 200 each tive lancets Indications:Type 2 diabetes mellitus without complication, with long-term current use of insulin (HCC)by Miscellaneous route in the morning and at noon and in the evening and before bedtime. Any lancets covered by insurance. 200 each 5Active semaglutide (Ozempic) 0.25 mg or 0.5 mg (2 mg/3 mL) pen injection Indications:Type 2 diabetes mellitus with hyperglycemia, with long-term current use of insulin (HCC)Inject 0.5 mg under the skin once weekly on the same day each week 9 mL 6Active tirzepatide (Mounjaro) 7.5 mg/0.5 mL pen injection Inject 0.5 mL (7.5 mg) under the skin once weekly on the same day each week 2 mL Discontinued Active Problems ProblemNoted DateDiagnosed DateObstructive sleep apnea10/09/2024Vitamin D eaupukyamj67/13/2025 Assessment & Plan (04/19/2025 9:30 AM EDT): Chronic Last vitamin D: 5 Current regimen: vitamin D3 50,000's p.o. weekly Changes: None Medication refill needed: No Continue to monitor Recheck vitamin D with next lab work Assessment & Plan (09/21/2024 2:44 PM EDT): Recently diagnosed Last vitamin D: 5 Start patient on vitamin D3 50,000's p.o. weekly Continue to monitor Hyperlipidemia associated with type 2 diabetes /10/2022 Assessment & Plan (04/19/2025 9:30 AM EDT): Chronic Stable Current regimen: Lipitor 20 mg p.o. nightly Changes: None Medication refill needed: No Continue to monitor Recheck lipid panel 6-12 months from last recheck Assessment & Plan (09/21/2024 2:43 PM EDT): Chronic Stable Current regimen: Lipitor 20 mg p.o. nightly Changes: None Medication refill needed: No Continue to monitor Recheck lipid panel 6-12 months from last recheck Assessment & Plan (07/24/2024 2:52 PM EST): Chronic Stable Current regimen: Lipitor 20 mg p.o. nightly Changes: None Medication refill needed: No Recheck lipid panel Assessment & Plan (05/09/2024 11:43 PM EDT): Chronic Stable Current regimen: Lipitor 20 mg p.o. nightly Changes: None Medication refill needed: No Tobacco abuse, in ernmfoisg62/09/2022Class 3 severe obesity due to excess calories with serious comorbidity and body mass index (BMI) of50.0 to 59.9 in adult02/17/2022 Assessment & Plan (04/19/2025 9:29 AM EDT): Chronic Discussed with patient how increased BMI/weight [...] maximize dosing to further facilitate weight loss. Assessment & Plan (09/21/2024 2:44 PM EDT): Chronic Discussed with patient how increased BMI/weight [...] maximize dosing to further facilitate weight loss. Assessment & Plan (07/24/2024 2:33 PM EST): Chronic Discussed with patient how increased BMI/weight puts a greater risk of developing worsening blood pressure and increased blood sugar. Counseled on lifestyle modification and how bringing down ones weight/BMI positively will impact health overall, patient verbalized understanding. Continue track vaishali ent's weight at subsequent visits. Currently on GLP-1's for blood sugar control, will maximize dosing to further facilitate weight loss. Assessment & Plan (05/09/2024 11:42 PM EDT): Chronic Currently on GLP-1's for blood sugar control, will maximize dosing to further facilitate weight loss. Continue track patient's weight at subsequent visits. Hypertension associated with /09/2022 Assessment & Plan (04/19/2025 9:31 AM EDT): Chronic, controlled, at goal Goal: Less than 140/90 Current regimen Diovan HCT 160/25 mg 1 tablet p.o. daily Changes: None Medication refill needed: No Reevaluate patient blood pressure at subsequent visits. Assessment & Plan (09/21/2024 2:43 PM EDT): Chronic, controlled, at goal Goal: Less than 140/90 Current regimen Diovan HCT 160/25 mg 1 tablet p.o. daily Changes: None Medication refill needed: No Reevaluate patient blood pressure at subsequent visits. Assessment & Plan (07/24/2024 2:52 PM EST): Chronic, controlled, at goal Goal: Less than 140/90 Current regimen Diovan HCT 160/25 mg 1 tablet p.o. daily Changes: None Medication refill needed: No Labs ordered: CMP, CBC, TSH, lipid panel Reevaluate patient blood pressure at subsequent visits. Assessment & Plan (05/09/2024 11:43 PM EDT): Chronic, controlled, at goal Goal: Less than 140/90 Current regimen Diovan HCT 160/25 mg 1 tablet p.o. daily Changes: None Medication refill needed: No Reevaluate patient blood pressure at subsequent visits. Type 2 diabetes mellitus with hyperglycemia, with long-term current use of rufvbfn9402/17/2022 Assessment & Plan (04/19/2025 10:01 AM EDT): Chronic A1c (04/19/2025): 7.0 Improved significantly Current [...] Diabetic eye exam: 05/15/2024 Follow-up: 3 months Assessment & Plan (09/21/2024 2:46 PM EDT): Chronic A1c (09/14/2024): 11.5 Worsening (patient has been unable to obtain Mounjaro for the last 2 months) Current regimen: Metformin XR 500 mg p.o. twice daily, insulin lispro 7 units 3 times daily with meals, Semglee 10 units subcu nightly, Mounjaro 7.5 mg subcu weekly Changes: Increase Semglee to 15 units subcu nightly, increase mealtime insulin to 10 units 3 times daily with meals, will need to restart Mounjaro at 2.5 mg subcu weekly and uptitrate again. Medication refill needed: Yes Statin use: Yes on Lipitor HAKEEM/ARB use: Yes on valsartan Microalbumin: 05/09/2024 Diabetic foot exam: 09/21/2024 Diabetic eye exam: 05/15/2024 Follow-up: 2 months Assessment & Plan (07/24/2024 2:53 PM EST): Chronic A1c (05/09/2024): 7.9 Slight worsening Current regimen: Metformin XR 500 mg p.o. twice daily, insulin lispro 7 units 3 times daily with meals, Semglee 10 units subcu nightly, Mounjaro 7.5 mg subcu weekly Changes: None Medication refill needed: No Statin use: Yes on Lipitor HAKEEM/ARB use: Yes on valsartan Diabetic eye exam: Will be scheduling upcoming appointment Diabetic foot exam: 08/10/2023 Microalbumin: 05/09/2024 Follow-up: 2 months Assessment & Plan (05/09/2024 11:45 PM EDT): Chronic A1c (05/09/2024): 7.9 Slight worsening Current regimen: Metformin XR 500 mg p.o. twice daily, insulin lispro 7 units 3 times daily with meals, Semglee 7 units subcu nightly, Mounjaro 7.5 mg subcu weekly Changes: Increase Semglee to 10 units subcu nightly Medication refill needed: No Statin use: Yes on Lipitor HAKEEM/ARB use: Yes on valsartan Diabetic eye exam: Will be scheduling upcoming appointment Diabetic foot exam: 08/10/2023 Microalbumin: Ordered 05/09/2024 Follow-up: 3 months Resolved Problems ProblemNoted DateDiagnosed DateResolved MrndTzmpocqpkvlc08/27 Menorrhagia with irregular cycleObstructive sleep apnea mlysuces81/On pre-exposure prophylaxis for HIV02/17/2022 05/09/2024Encounter for control pills qdsnpgtytii53 Encounter for test, result ockepkbh47ontact with and (suspected) exposure to infections with a predominantly sexual mode of fvgwwxyemvwd02Urinary tract tuozmotor45 Sexually transmitted jwprzjy13SOB (shortness of breath) HeadacheFatigueough Encounters DateTypeDepartmentCare PetwRokurzxvihy65/22/2025Telephone [address] [place] [address] Izabella Leyva CMA 04/19/2025 9:20 AM EDTOffice Visit [address] [place] [address] Andrea Garrido MD Type 2 diabetes mellitus with hyperglycemia, with long-term current use of insulin (HCC) (Primary Dx); Hypertension associated with diabetes (HCC); Hyperlipidemia associated with type 2 diabetes mellitus (HCC); Vitamin D deficiency; Class 3 severe obesity due to excess calories with serious comorbidity and body mass index (BMI) of50.0 to 59.9 in adult (HCC)03/07/2025Orders Only [address] [place] [address] Ernestina Uribe MD 03/06/2025Refill [address] [place] [address] Genia Hoover RN Mixed hyperlipidemia; Type 2 diabetes mellitus without complication, with long-term current use of insulin (HCC); Primary hypertension; HSV-2 infection; Type 2 diabetes mellitus with hyperglycemia, with long-term current use of insulin (HCC); Class 3 severe obesity due to excess calories with serious comorbidity and body mass index (BMI) of50.0 to 59.9 in adult (HCC)from Last 3 Months Immunizations ImmunizationAdministration DatesNext EbsLSI6002/14/1992,11/18/1988,1987, 1987,1987HiB11/18/1988MMR02/14/1992,08/19/1988OPV02/14/1992, 11/18/1988,1987,1987Tdap11/17/2024 Family History Medical HistoryRelationCommentsHypertensionMotherRelationStatusCommentsMother Social History Tobacco UseTypesPacks/DayYears UsedDateSmoking Tobacco: Some DaysCigarettes0.5 15.4Started: 2008; Last attempted to quit: 4Passive Smoke Exposure: PastSmokeless Tobacco: Never Tobacco Cessation:Ready to Q uit: Yes Comments:Im gradually slowing down in my smoking. Eventually I will quit. Alcohol UseStandard Drinks/WeekCommentsNot Currently4 (1 standard drink = 0.6 oz pure alcohol)PHQ-2AnswerDate RecordedPHQ-2 Rzyzk194Hunger Vital Sign AnswerDate RecordedWithin the past 12 months, you worried that your food would run out before you got the money to buymore.Sometimes true01/23/2025Within the past 12 months, the food you bought just didn't last and you didn't have money to get more.Sometimes true01/23/2025HC UtilitiesAnswerDate RecordedIn the past 12 months has the electric, gas, oil, or water [employer] threatened to shut off services in your home?Yes01/23/2025HC - Inadequate HousingAnswerDate Recorded Current Living SituationI have a steady place to live01/23/2025Think about the place you live. Do you have problems with any of the following?None of the above 01/23/2025HC - TransportationAnswerDate RecordedIn the past 12 months, [...] feel lonely or isolated from those around you?Jcdvdjoze46/15/2025Intimate Partner ViolenceAnswerDate RecordedFear of Current or Ex-JgrydheBw40/12/2025Emotionally DgpjwkOx65/12/2025Physically NwgvyfMe48/12/2025Sexually LvpscbLi67/12/2025Social ConnectionsAnswerDate RecordedFrequency of Communication with Friends and FamilyMore than three times a week09/20/2024Frequency of Social Gatherings with Friends and FamilyOnce a week09/20/2024Financial Resource StrainAnswerDate RecordedDifficulty Paying Living ExpensesSomewhat hard09/20/2024Difficulty Paying Medical ExpensesYes 09/20/2024StressAnswerDate RecordedFeeling of StressOnly a ixdepi7709/20/2024 Physical ActivityAnswerDate RecordedDays of Exercise per Week4 days01/23/2025On those days that you engage in moderate to vigorous physical activity, how many minutes, on average, do you exercise?30001/23/2025Total Minutes of Exercise Per Zrrb7607701/23/2025Food InsecurityAnswerDate RecordedWorried about Running Out of Food in the Last YearNever 09/20/2024Ran Out of Food in the Last YearNever 09/20/2024Transportation NeedsAnswerDate RecordedLack of TransportationYes 09/20/2024Housing StabilityAnswerDate RecordedWas there a time when you did not have a steady place to oobtvIj0809/20/2024Worried that the place you are staying is making you kkgxVc4909/20/2024lcohol UseAnswerDate RecordedQ1: How often do you have a drink containing alcohol?Monthly or less01/23/2025Q2: How many drinks containing alcohol do you have on a typical day when you are drinking?1 or 2 01/23/2025Q3: How often do you have six or more drinks on one occasion?Never 01/23/2025lcohol UseNot Rvajykcdb69/15/2025CommentsNoSex and Gender InformationValueDate RecordedSex Assigned at MbiwuJuxonr10/08/2022 6:40 PM EDT Legal SwdEkrcos12/16/2020 11:52 AM EDTGender GbnosqauXdelwm98/08/2022 6:40 PM EDTSexual HcsmcsxcjpdPdobtdob26/08/2022 6:40 PM EDT Last Filed Vital Signs Vital SignReadingTime TakenCommentsBlood Dmqgysaf548/7104/19/2025 9:36 AM EDT Rpdov537904/19/2025 9:36 AM HPARsfotxihwbx62.6 ??C (97.8 ??F)04/19/2025 9:36 AM EDTRespiratory Shke8763 9:36 AM EDTOxygen Oitbidsnzf50%04/19/2025 9:36 AM EDTInhaled Oxygen Concentration--Cyvrwa917 kg (372 lb 3.2 oz)04/19/2025 9:36 AM CUNWdcfbl762.2 cm (5' 7 )04/19/2025 9:36 AM EDTBody Mass Index58.291 9:36 AM EDT Plan of Treatment DateTypeDepartmentCare Team (Latest Contact Info)Nflxibincmd21/03/2026 9:20 AM ESTOffice Visit [facility] [address] [facility] [address] [place] [address] [place] [address] [place] [address] [address] [place] [address] Health MaintenanceDue DateLast DoneCommentsPap Smear1987Hepatitis B Vaccines (1 of 3 - 19+ 3-dose series)2006Pneumococcal (1 of 2 - PCV) 2006COVID-19 Vaccine (2 - 2024- season)Influenza Vaccine (#1)2025Diabetic Urine Jimsysbxuygj73/29/202510/, 11/11/2022iabetic Eye Exam/10/2023, 3Diabetic Annual GFR /12/2024, 10/06/2023, 04/21/2023, Additional history existsDiabetic Foot Exam/, 08/10/2023, 02/17/2022Hemoglobin A1C10/18/2025 04/19/2025, 09/14/2024, 05/09/2024, Additional history existsSDOH Part 1 /Depression Iovipegre61/03/2025, 09/21/2024, 07/24/2024, Additional history existsSDOH Part /03/2025Tobacco Ffsogkfue25/03/2025, 07/24/2024ervical Cancer Uatwktwsb80/03/2028HPV and Pap/dult Tdap/03/2025Zoster Vaccine (1 of 2) 2037Hepatitis C MseetayceDcglbnulm63/27/2024, 04/02/2023, 02/17/2022 Procedures Procedure NamePriorityDate/TimeAssociated DiagnosisCommentsGLYCOSYLATED HEMOGLOBIN (HGB A1C)-AHSStvrnpk43/09/2025 10:01 AM EDT Type 2 diabetes mellitus with hyperglycemia, with long-term current use of insulin (HCC) COMPREHENSIVE METABOLIC PANEL (CMP)Zxylhdh4809/14/2024 8:17 AM EST Hypertension associated with diabetes (HCC) URINE ALBUMIN CREATININE XPHETWvuhtza97/29/2024 2:51 PM EDT Type 2 diabetes mellitus without complication, with long-term current use of insulin (HCC) HEPATITIS C SWWJIHBRTdocylk23/27/2024 10:45 AM EDT Screening for STDs (sexually transmitted diseases) Need for hepatitis C screening test from Last 3 Months or Most Recently Relevant to Health Maintenance Results * (ABNORMAL) Glycosylated Hemoglobin (Hgb A1C)- POC (04/19/2025 10:01 AM EDT) ComponentValueRef RangeTest MethodAnalysis TimePerformed AtPathologist SignatureHemoglobin A1c7.0(A)4.3 - 5.6 %[facility] Serial# A1C - [id number]'[facility] SPALDINGpecimen (Source)Anatomical Location / LateralityCollection Method / VolumeCollection TimeReceived TimeWhole Blood Blood / Opfszek1704/19/2025 10:01 AM EDT Narrative Authorizing ProviderResult TypeResult StatusRodrigo Joe Garrido MDPOINT OF CARE TEST ORDERABLESFinal ResultPerforming OrganizationAddressCity/State/ZIP CodePhone Number [facility] [address] [facility] [address] [place] [address], * (ABNORMAL) Comprehensive Metabolic Panel (CMP) (09/14/2024 8:17 AM EST) ComponentValueRef RangeTest MethodAnalysis TimePerformed AtPathologist LzsvwvhonQtnkltw480(H)70 - 99 mg/dL09/14/2024 7:35 PM ESTLABCORP KYSHFE80 - 20 mg/dL09/14/2024 7:35 PM ESTLABCORP LABCreatinine0.800.57 - 1.00 mg/dL 09/14/2024 7:35 PM ESTLABCORP LABBUN/Creat Rttby009 - 2303 7:35 PM EST [facility] MZQJzhucf551(L)134 - 144 mmol/L09/14/2024 7:35 PM ESTLABCORP LAB Potassium4.13.5 - 5.2 mmol/L09/14/2024 7:35 PM ESTLABCORP FFDOslnpnxs0718 - 106 mmol/L09/14/2024 7:35 PM ESTLABCORP XEVHE001(L)20 - 29 mmol/L09/14/2024 7:35 PM ESTLABCORP LABCalcium9.48.7 - 10.2 mg/dL09/14/2024 7:35 PM ESTLABCORP LABProtein, Total6.76.0 - 8.5 g/dL09/14/2024 7:35 PM ESTLABCORP LABAlbumin3.9 3.9 - 4.9 g/dL09/14/2024 7:35 PM ESTLABCORP LABGlobulin, Total2.81.5 - 4.5 g/dL09/14/2024 7:35 PM ESTLABCORP LABBilirubin, Total0.40.0 - 1.2 mg/dL 09/14/2024 7:35 PM ESTLABCORP LABAlkaline Oprvmiiabok598(H)44 - 121 IU/L 09/14/2024 7:35 PM ESTLABCORP BGSIAF052 - 40 IU/L09/14/2024 7:35 PM ESTLABCORP ECSYFL97(H)0 - 32 IU/L09/14/2024 7:35 PM ESTLABCORP MONgPHI21>59 mL/min/1.73 09/14/2024 7:35 PM ESTLABCORP LABSpecimen (Source)Anatomical Location / LateralityCollection Method / VolumeCollection TimeReceived TimeBloodBlood / UnknownVenipuncture / Rlqmcsf0009/14/2024 8:17 AM EST09/14/2024 8:17 AM EST Narrative [facility] - 09/14/2024 7:35 PM EST Performed at: [address] ??[id number] Inventory Control Specialist: Nicko Wick MD, Phone: ??[phone] Authorizing ProviderResult TypeResult StatusRodrigtomasz Garrido MDLAB BLOOD ORDERABLESFinal ResultPerforming OrganizationAddressCity/State/[facility] Code Phone Number [facility] [address] [place] [address], * Microalbumin/Creatinine Ratio, Urine (05/09/2024 2:51 PM EDT)ComponentValueRef RangeTest MethodAnalysis TimePerformed AtPathologist SignatureCreatinine Conc, Lnhxs883.5Not Estab. mg/dL05/10/2024 3:36 PM EDTLABCORP LABMicroalbumin Conc, Urine8.6Not Estab. ug/mL05/10/2024 3:36 PM EDTLABCORP LABMicroalb/Creat Ratio3 0 - 29 mg/g creat1 3:36 PM EDTLABCORP LABComment: ? Normal: ?0 - ??29 ? Moderately increased: 30 - 300 Severely increased: >300 Specimen (Source)Anatomical Location / LateralityCollection Method / Volume Collection TimeReceived TimeUrine (Urine, Voided)Collection / Hzogmmk5605/09/2024 2:51 PM EDT1 2:51 PM EDT Narrative [facility] - 05/10/2024 3:36 PM EDT Performed at: [address] ??[id number] Inventory Control Specialist: Nicko Wick MD, Phone: ??[phone] Authorizing ProviderResult TypeResult StatusRoddavid Garrido MDURINE ORDERABLESFinal ResultPerforming OrganizationAddressCity/State/[facility] CodePhone Number [facility] [address] [place] [address], * Hepatitis C Ab w/Reflex RNA PCR (10/06/2023 10:45 AM EDT)ComponentValueRef RangeTest MethodAnalysis TimePerformed AtPathologist SignatureHep C Antibody Non ReactiveNon Nnoskhbn89/ 11:35 PM EDTLABCORP LABSpecimen (Source) Anatomical Location / LateralityCollection Method / VolumeCollection Time Received TimeBloodBlood / UnknownVenipuncture / Fwuxmgc4010/06/2023 10:45 AM EDT 10/06/2023 10:45 AM EDT Narrative [facility] - 10/06/2023 11:35 PM EDT Performed at: [address] ??[id number] Inventory Control Specialist: Nicko Wick MD, Phone: ??[phone] Authorizing ProviderResult TypeResult StatusMajanae-Mellissa Hoang MDLAB BLOOD ORDERABLESFinal ResultPerforming OrganizationAddressCity/State/ZIP CodePhone Number [facility] [address] [place] [address], from Last 3 Months or Most Recently Relevant to Health Maintenance Insurance Care Teams Team MemberRelationshipSpecialtyStart DateEnd Date Andrea Garrido MD [address] [address] PCP - GeneralFamily Oclvnkfr62/29/24
--- OUTSIDE RECORDS SUMMARY | 2025-05-03 20:13 | XMS_ITS | Clinical Summary ---
Author Organization [facility] Address [address] [place] [address] Care Team Providers Care Aoc Plans Intelligence Officer Chief Name Role Phone Unavailable Primary Care Provider Unavailabl e Social History Tobacco UseTypesPacks/DayYears UsedDateSmoking Tobacco: Never Assessed CommentsUnknownSex and Gender InformationValueDate RecordedSex Assigned at Not on fileLegal WcoZkkouj53/02/2020 9:32 PM PSTGender IdentityNot on fileSexual OrientationNot on file Plan of Treatment Not on file
--- NOTE | 2025-05-03 20:21 | ED.GENADUL1 ---
HPI HPI - General Adult General Chief complaint: Extremity Problem, Nontraumatic Stated complaint: Lump Time Seen by Provider: 05/03/25 19:54 Source: patient Mode of arrival: walk-in Limitations: no limitations History of Present Illness HPI narrative: This 39-year-old female with a history of hidradenitis presents for evaluation of a tender lump on her right buttock and right lower inguinal area. The patient states the symptoms started 2 days ago. 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 The abscesses do not abut the rectum or vagina. She has not had a fever. She denies the possibility of stating she just finished her menstrual period 2 days ago. 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 Related Data Allergies Allergy/AdvReac Type Severity Reaction Status Date / Time cephalexin AdvReac Intermediate Unknown Verified 05/03/25 20:02 Review of Systems ROS Status of ROS 10 or more systems reviewed and unremarkable except as noted in history and below PFSH PFSH Social History Little interest or pleasure in doing things: not at all Feeling down, depressed, or hopeless: not at all Exam Narrative Exam Narrative: Vital signs and Nursing Notes reviewed: Patient is afebrile, tachycardic with a pulse of 114, blood pressure is elevated at 130/96, she is not hypoxic with pulse ox of 97% on room air General: Awake, alert, oriented, obese -English female, she is uncomfortable appearing, no respiratory distress HEENT: Normocephalic atraumatic, mucous membranes are moist and pink, eyes are clear, normal conjunctiva, vision is grossly intact Chest: Lungs are clear to auscultation with good air entry, there is no wheezing rhonchi or rales appreciated no accessory muscle use, patient is speaking in complete sentences-no chest wall tenderness to palpation CVS: Regular rate and rhythm S1-S2, no murmurs rubs or gallops, pulses are brisk and equal bilaterally ABD: Obese, soft, nondistended, nontender, no rebound guarding or rigidity : There is an approximately 2 x 2 cm ovoid soft, fluctuant area at the distal aspect of the right external labia-consistent with an abscess, this does not abut the vagina, there is also a 1.5 x 1.5 cm soft fluctuant area on the right buttock consistent with an abscess, this does not abut the rectum, there is no local drainage, bleeding or cellulitis Extremities: Moving all extremities, no lower extremity tenderness or swelling noted, negative Homans' sign, pulses are brisk and equal bilaterally Skin: Normal in appearance without rash,pallor, petechiae or purpura Neuro: No focal deficits Constitutional Vital Signs, click to edit/add: Last Vital Signs Temp 97.7 F 05/03/25 20:02 Pulse 114 H 05/03/25 20:02 Resp 18 05/03/25 20:02 BP 130/96 H 05/03/25 20:02 Pulse Ox 97 05/03/25 20:02 O2 Del Method Room Air 05/03/25 20:02 Course Vital Signs Vital signs: Vital Signs Temperature 97.7 F 05/03/25 20:02 Pulse Rate 114 H 05/03/25 20:02 Respiratory Rate 18 05/03/25 20:02 Blood Pressure 130/96 H 05/03/25 20:02 Pulse Oximetry 97 05/03/25 20:02 Oxygen Delivery Method Room Air 05/03/25 20:02 Temperature 97.7 F 05/03/25 20:02 Pulse Rate 114 H 05/03/25 20:02 Respiratory Rate 18 05/03/25 20:02 Blood Pressure 130/96 H 05/03/25 20:02 Pulse Oximetry 97 05/03/25 20:02 Oxygen Delivery Method Room Air 05/03/25 20:02 Medical Decision Making MDM Narrative Medical decision making narrative: This 39-year-old female who is morbidly obese and has a history of hidradenitis presents for evaluation of 2 abscesses, 1 on her right buttock area and 1 in her external labia distally. The buttock abscess does not abut her rectum or anus. The labial abscess does not abut her vagina. There is no sign of any local cellulitis or perineal infection/necrotizing fasciitis. The patient is not diabetic. Both abscesses were incised and drained. I was assisted by the nursing staff. The patient was medicated with oral Augmentin. She was given the remainder of the packing to take with her as I explained to her that she would likely need to have this removed and replaced and 48 hours. She was given additional dose of Augmentin to use tomorrow morning and 2 Percocet were dispensed to her at the time of discharge. 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 She states she is on her way to [place]. I encouraged her to follow up at another emergency department in 48 hours to have this packing replaced and sooner if she started to have severe pain, fever or any concerns. Discharge Plan Discharge Chief Complaint: Extremity Problem, Nontraumatic Clinical Impression: Abscess of buttock, right, Abscess of labia majora Patient Disposition: Home, Self-Care Time of Disposition Decision: 21:15 Condition: Good Print Language: Emirati Instructions: Abscess (ED), Abscess Follow-up (ED), Abscess Incision and Drainage (DC) Additional Instructions: Use antibiotics as directed, follow-up in 48 hours to have the areas reassessed and packing replaced as deemed necessary. When you are able to please soak in a warm bath. Referrals: Physician,Non-Staff, MD [Primary Care Provider] - 1 week Procedures ED Procedure Instructions Procedures Procedures: Procedure note: Incision and drainage right buttock and labial abscess. Right buttock abscess area was cleaned with Betadine and infiltrated with 1% lidocaine, prior to opening it up 10 cc of purulent drainage was removed and discarded. An incision was then placed into the center of the abscess with a #11 blade. A large amount of purulent/bloody material was expressed. The abscess cavity was then irrigated with normal saline until clear. Quarter inch packing was placed into the abscess cavity. Patient tolerated this procedure well. Right labial abscess was cleaned with Betadine and infiltrated with 1% lidocaine, prior to opening up 10 cc of purulent drainage was removed and discarded. An incision was then placed in the center of the abscess with a #11 blade. A large amount of purulent bloody material was expressed. The abscess cavity was then irrigated with normal saline until clear. Quarter inch packing was placed into the abscess cavity. Patient tolerated this procedure well.
[2025-05-03] MEDS: AMOXICILLIN/POT CLAV 875-125 MG TABLET 1 TAB PO (21:07)
[2025-05-03] MEDS: LIDOCAINE HCL 1% 100 MG/10 ML MDV INJ (21:07)
--- NOTE | 2025-05-03 21:15 | PC.NURSE ---
Pt has two abcesses, one on right side of labia and one on bottom of right buttock. Firm and warm to the touch, painful for pt.
[2025-05-03] MEDS: AMOXICILLIN/POT CLAV 875-125 MG TABLET PO (21:39)
[2025-05-03] MEDS: IBUPROFEN 600 MG TABLET PO (21:39)
[2025-05-03] MEDS: OXYCODONE HCL/ACETAMINOPHEN 5MG/325MG 2 TAB PO (21:40)
[2025-05-03] MEDS: ONDANSETRON 4 MG RAPDIS TABLET SL (21:40)
[2025-05-03 21:43] VITALS: BP 134/87; PULSE 88; O2SAT 98
== END 2025-05-03 21:43 | disposition home or self-care (01) ==
PROVIDERS: Emergency Provider Emergency Medicine
DX: L02.31 Cutaneous abscess of buttock (principal); N76.4 Abscess of vulva; R10.9 Unspecified abdominal pain
CPT/HCPCS: 99284; Q0162